=== PATIENT | male | born 1935 ===

== ENCOUNTER 2021-01-02 05:55 | Day surgery (SDC) | payer OTHER | END 2021-01-02 10:15 | disposition home or self-care (01) | LOC: AMB-ENDOS 05:55 | PROVIDERS: ATTEND Colon & Rectal Surgery | DX: K63.5 Polyp of colon (principal); K64.8 Other hemorrhoids; Z20.822 Contact with and (suspected) exposure to COVID-19 ==

== ENCOUNTER 2021-02-27 05:56 | Day surgery (SDC) | payer OTHER | END 2021-02-27 11:40 | disposition home or self-care (01) | LOC: AMB-ENDOS 05:56 | PROVIDERS: ATTEND Colon & Rectal Surgery | DX: D12.0 Benign neoplasm of cecum (principal); K64.8 Other hemorrhoids; Z20.822 Contact with and (suspected) exposure to COVID-19 ==